=== PATIENT | male | born 1960 | race American Indian/Alaskan Native ===

== ENCOUNTER 2017-05-17 15:58 | Emergency (ER) | payer OTHER ==
[2017-05-17 17:17] LABS: Hematocrit 46.2 % (35.5-45.6); Hemoglobin 16.3 gm/dl (11.8-15.2); Mean Corpuscular HGB Conc 35 % (32-34); Mean Corpuscular Hemoglobin 30 pg (28-32); Mean Corpuscular Volume 86 fl (84-94); Platelet Count 219 K/mm3 (140-440); Red Blood Count 5.35 M/mm3 (3.65-5.03); Red Cell Distribution Width 13.7 % (13.2-15.2); White Blood Count 6.7 K/mm3 (4.5-11.0)
[2017-05-17 18:00] LABS: Anion Gap 19 mmol/L; BUN/Creatinine Ratio 23; Blood Urea Nitrogen 18 mg/dL (9-20); Calcium 9.1 mg/dL (8.4-10.2); Carbon Dioxide 25 mmol/L (22-30); Chloride 98.1 mmol/L (98-107); Glucose 80 mg/dL (75-100); Potassium 4.4 mmol/L (3.6-5.0); Sodium 138 mmol/L (137-145)
[2017-05-17 18:28] LABS: Urine Drugs of Abuse Note Disclamer
[2017-05-17 18:50] LABS: Bacteria,Urine 1+ /HPF (Negative); Bilirubin,Urine NEG (Negative); Blood,Urine NEG (Negative); Ketones,Urine NEG (Negative); Leukocyte Esterase,Urine TR (Negative); Mucus,Urine 2+ /HPF; Nitrite,Urine NEG (Negative); Protein,Urine <15 mg/dL mg/dL (Negative); Urobilinogen,Urine < 2.0 mg/dL (<2.0)
--- NOTE | 2017-05-17 19:09 | Emergency Department Report ---
HPI - General Chief Complaint: High BP Time Seen by Provider: 05/17/17 16:56 - HPI HPI: This is a 56 year-old male presents to the emergency department from [facility] with complaint of hypertension. The patient is trying to go to [facility] for rehabilitation and detox from multiple substance abuse including alcohol, cocaine and marijuana. He says the last time he used the substances was yesterday. However, when he went to the facility today for intake he had elevated blood pressure and was told that he needs to go [facility] for medical clearance. Patient denies having any history of hypertension or being on any medications. He denies any history of delirium tremens. He denies any current withdrawal type symptoms such as tremors, nausea, vomiting, abdominal pain. ED Past Medical Hx - Past Medical History Hx Psychiatric Treatment: Yes (depression) - Social History Smoking Status: Current Every Day Smoker Substance Use Type: Alcohol, Cocaine, Marijuana ED Review of Systems ROS: Stated complaint: HYPERTENSION Other details as noted in HPI Comment: All other systems reviewed and negative Constitutional: denies: chills, fever Eyes: denies: eye pain, eye discharge, vision change ENT: denies: ear pain, throat pain Respiratory: denies: cough, shortness of breath, wheezing Cardiovascular: denies: chest pain, palpitations Gastrointestinal: denies: abdominal pain, nausea, diarrhea Genitourinary: denies: urgency, dysuria Musculoskeletal: denies: back pain, joint swelling, arthralgia Skin: denies: rash, lesions Neurological: denies: headache, weakness, paresthesias Physical Exam - Physical Exam Vital Signs: Vital Signs 05/17/17 16:21 Temperature 98.2 F Pulse Rate 73 Respiratory 20 Rate Blood Pressure 159/94 Blood Pressure 159/94 [Right] O2 Sat by Pulse 99 Oximetry Physical Exam: GENERAL: The patient is well-developed well-nourished. HENT: Normocephalic. Atraumatic. Patient has moist mucous membranes. EYES: Extraocular motions are intact. Pupils equal reactive to light bilaterally. NECK: Supple. Trachea is midline. CHEST/LUNGS: Clear to auscultation. There is no respiratory distress noted. HEART/CARDIOVASCULAR: Regular. There is no tachycardia. There is no murmur. ABDOMEN: Abdomen is soft, nontender. Patient has normal bowel sounds. There is no abdominal distention. SKIN: Skin is warm and dry. NEURO: The patient is awake, alert, and oriented. The patient is cooperative. The patient has no focal neurologic deficits. The patient has normal speech. MUSCULOSKELETAL: There is no tenderness or deformity. There is no limitation range of motion. There is no evidence of acute injury. ED Course Vital Signs 05/17/17 16:21 Temperature 98.2 F Pulse Rate 73 Respiratory 20 Rate Blood Pressure 159/94 Blood Pressure 159/94 [Right] O2 Sat by Pulse 99 Oximetry ED Medical Decision Making - Lab Data Result diagrams: 05/17/17 17:01 05/17/17 17:26 - Medical Decision Making The patient presented with some elevated blood pressure but nothing that was any type of hypertensive emergency or urgency. He was not given any antihypertensives and his blood pressures come down to a normal level. The last pressure I just saw was a systolic of 118. Labs are mostly unremarkable. Urine drug screen is positive for marijuana and cocaine but the patient admits to using these substances and that is what he is going to get detox and rehabilitation for. Since his blood pressure is so reasonable without any intervention, I do not feel that he needs to be started on any antihypertensives. He will be discharged to follow-up at [place], and will return to the ER with any worsening of symptoms or any acute distress. Critical Care Time: No Critical care attestation.: If time is entered above; I have spent that time in minutes in the direct care of this critically ill patient, excluding procedure time. ED Disposition Clinical Impression: Elevated blood pressure reading, Medical clearance for psychiatric admission Disposition: TO HOME OR SELFCARE Is pt being admited?: No Condition: Good Instructions: Hypertension (ED) Additional Instructions: Try and stay away from foods that are high in salt and caffeinated products to help with your blood pressure. Return to the emergency Department with any worsening of your symptoms or any acute distress. Referrals: PRIMARY CARE [Primary Care Provider] - 3-5 Days [facility] [Outside] - 3-5 Days Time of Disposition: 19:10
[2017-05-17 19:25] VITALS: BP 138/86
[2017-05-17 19:36] LABS: Blastocytes % (Manual) 0 %
[2017-05-17 19:37] LABS: Anisocytosis 1+; Basophils % (Manual) 0 % (0.0-1.8); Diff Status Complete; Eosinophils % (Manual) 0 % (0.0-4.3); Platelet Estimate Consistent w Auto
== END 2017-05-17 19:45 | disposition home or self-care (01) ==
LOC: ED 15:58
DX: R03.0 Elevated blood-pressure reading, without diagnosis of hypertension (principal); F32.9 Major depressive disorder, single episode, unspecified; F17.200 Nicotine dependence, unspecified, uncomplicated; F14.10 Cocaine abuse, uncomplicated; F12.10 Cannabis abuse, uncomplicated
CPT/HCPCS: 36415; 80048; 80307; 81001; 85007; 85025; 99283; G0480; 80320

== ENCOUNTER 2017-06-04 20:49 | Emergency (ER) | payer OTHER ==
[2017-06-04 21:11] VITALS: BP 168/104
--- NOTE | 2017-06-04 21:45 | Cat Scan Report ---
FINAL REPORT EXAM: CT HEAD/BRAIN WO CON HISTORY: left jew pain and swelling TECHNIQUE: CT was performed from the foramen magnum through the vertex in the axial plane without the use of intravenous contrast. PRIORS: None. FINDINGS: The hill/white matter attenuation pattern is normal. There is no mass lesion or mass effect. There are no abnormal extra-axial fluid collections. There is no evidence of acute intracranial hemorrhage or infarct. The ventricles are of normal size and configuration. There is a chronic right lamina papyracea fracture. The visualized paranasal sinuses are clear. IMPRESSION: Normal CT of the head.
== END 2017-06-05 04:25 | disposition left against medical advice (07) ==
LOC: ED 20:49
DX: S09.8XXA Other specified injuries of head, initial encounter (principal); Z53.21 Procedure and treatment not carried out due to patient leaving prior to being seen by health care provider
CPT/HCPCS: 70450

== ENCOUNTER 2017-06-05 13:22 | Emergency (ER) | payer OTHER ==
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
[2017-06-05] MEDS ORDERED: MOTRIN PO ONE ×2 (21:54→22:08)
[2017-06-06 05:46] VITALS: BP 149/102
== END 2017-06-05 22:15 | disposition home or self-care (01) ==
LOC: ED 13:22
DX: S00.83XA Contusion of other part of head, initial encounter (principal); F32.9 Major depressive disorder, single episode, unspecified; W22.8XXA Striking against or struck by other objects, initial encounter; Y93.89 Activity, other specified; Y92.89 Other specified places as the place of occurrence of the external cause; Y99.8 Other external cause status
CPT/HCPCS: 99282

== ENCOUNTER 2017-06-09 11:29 | Outpatient (CLI) | payer OTHER ==
--- NOTE | 2017-06-09 13:14 | XRay Report ---
RIGHT KNEE RADIOGRAPHS INDICATION: Right knee pain. COMPARISON: None similar. FINDINGS: AP, lateral and oblique right knee radiographs demonstrate intact bony articulation. Slight degenerative tibial spine prominence possible. Normal soft tissues without evidence of suprapatellar effusion. CONCLUSION: No acute right knee radiographic abnormality, as described. Thank you for the opportunity to participate in this patient's care.
--- NOTE | 2017-06-09 14:14 | XRay Report ---
CERVICAL SPINE RADIOGRAPHS INDICATION: Cervicalgia. COMPARISON: None similar. FINDINGS: AP, lateral, oblique and open-mouth views of the cervical spine, 5 images demonstrate symmetric lateral masses. Dens obscured superiorly due to overlying skull, though intact at the base. Small radiopaque dental materials. Intact craniocervical articulation on the lateral view with normal prevertebral soft tissues, vertebral body stature and alignment. Mild C6 degenerative spurring. Fairly preserved disc heights. C5-C6 left neural foramina narrowing questioned versus projectional. Clear visualized lung apices. CONCLUSION: No acute cervical spine radiographic abnormality with C6 degenerative changes noted, as described. Please correlate. Thank you for the opportunity to participate in this patient's care.
== END 2017-06-09 11:30 | disposition home or self-care (01) ==
LOC: XRAY 11:29
PROVIDERS: ATTEND Orthopaedic Surgery
DX: M47.892 Other spondylosis, cervical region (principal); M25.561 Pain in right knee
CPT/HCPCS: 72050